=== PATIENT | male | born 2000 | race African-American/Black ===

== ENCOUNTER 2023-01-26 21:50 | Emergency (ER) | payer BC ==
[2023-01-26] MEDS ORDERED: cefTRIAXone (ROCEPHIN) 500 MG VIAL ONE (23:06)
[2023-01-26] MEDS ORDERED: Doxycycline 100 MG CAP ONE (23:06)
[2023-01-26 23:07] LABS: Bacteria/HPF None Seen HPF (None Seen); Bilirubin Negative (Negative); Blood, Urine Negative (Negative); CAUTI Indications for Culture Pelvic or flank pain; Clarity Clear (Clear); Glucose, Urine (Dipstick) Normal (Negative); Ketone, Urine Negative (Negative); Leukocyte Negative Leu/uL (Negative); Nitrite Negative (Negative); Protein, Urine (Dipstick) 10 mg/dL (Neg-Trace); RBC/HPF 0-3 HPF (0-3); Specific Gravity, Urine 1.019 (1.002-1.036); Squamous Epithelial None Seen HPF (0-3); Urobilinogen Normal mg/dL (Less than 2); WBC/HPF 0-3 HPF (0-3); pH, Urine 7.5 (5.0-9.0)
[2023-01-26] MEDS ORDERED: Lidocaine 1% PF 5 ML VIAL ONE (23:07)
[2023-01-26 23:09] LABS: Urine Culture Reflex No No
[2023-01-27 01:29] LABS: Chlam.trachomatis by PCR,Urine Not Detected (NotDetected); GC N.gonorrhoeae PCR,UrineVOID Not Detected (NotDetected)
== END 2023-01-26 23:20 | disposition home or self-care (01) ==
LOC: ERS 21:50
DX: I86.1 Scrotal varices (principal); N45.1 Epididymitis; N43.3 Hydrocele, unspecified
CPT/HCPCS: 76870; 81001; 87491; 87591; 93976; 96372; J0696

== ENCOUNTER 2023-01-27 07:07 | Day surgery (SDC) | payer BC ==
[2023-01-27] MEDS ORDERED: Morphine 4 MG/ML VIAL ONE ×2 (07:32→09:22)
[2023-01-27] MEDS ORDERED: Ondansetron PF 4 MG/2 ML Vial ONE ×2 (07:32→10:04)
[2023-01-27 07:55] LABS: #Monocytes 0.4 thou/uL (0.11-0.59); #Neutrophils 7.3 thou/uL (1.40-6.50); %Basophils 0.2 % (0.0-1.0); %Eosinophils 0.3 % (0.0-10.0); %Lymphocytes 10.8 % (28.0-48.0); %Monocytes 4.5 % (0.0-4.0); Hemoglobin 14.5 g/dL (14.0-18.0); Mean Corpuscular Hemoglobin 27.7 pg (25.0-35.0); Mean Platelet Volume 10.5 fL (7.4-10.4); Platelet Count 276 10x3/uL (130-400); RBC Distribution Width 13.3 % (11.5-14.5); Red Blood Cell (RBC) Count 5.24 mill/uL (4.00-5.20); White Blood Cell (WBC) Count 8.6 10x3/uL (4.8-10.8)
[2023-01-27 08:18] LABS: ALT (SGPT) 16 U/L (8-55); AST (SGOT) 24 U/L (5-34); Albumin 4.6 g/dL (3.5-5.0); Alkaline Phosphatase 82 U/L (50-130); Anion Gap 13 mmol/L (10-20); BUN (Urea Nitrogen) 9 mg/dL (8.9-20.6); Bilirubin, Total 0.4 mg/dL (0.2-1.2); Calc. Creatinine Clearance 0 mL/min (70-130); Calcium 9.4 mg/dL (7.8-10.44); Carbon Dioxide 26 mmol/L (22-29); Chloride 102 mmol/L (98-107); Estimated GFR 104; Globulin 2.3 g/dL (2.4-3.5); Glucose 112 mg/dL (70-105); Potassium 3.9 mmol/L (3.5-5.1); Protein, Total 6.9 g/dL (6.0-8.3); Sodium 137 mmol/L (136-145)
[2023-01-27] MEDS ORDERED: fentaNYL 50 mcg/mL 1 mL Vial ONE ×3 (09:46→10:53)
[2023-01-27] MEDS ORDERED: Meperidine HCl/PF 25 MG/ML VIAL ONE (09:46)
[2023-01-27] MEDS ORDERED: Famotidine/PF 20 mg/2ml Vial ONE (09:46)
[2023-01-27 09:47] LABS: Bacteria/HPF None Seen HPF (None Seen); Bilirubin Negative (Negative); Blood, Urine Negative (Negative); CAUTI Indications for Culture Dysuria,urgency,freq; Clarity Clear (Clear); Glucose, Urine (Dipstick) Normal (Negative); Ketone, Urine Negative (Negative); Leukocyte Negative Leu/uL (Negative); Nitrite Negative (Negative); Protein, Urine (Dipstick) Negative (Neg-Trace); RBC/HPF 0-3 HPF (0-3); Specific Gravity, Urine 1.021 (1.002-1.036); Squamous Epithelial None Seen HPF (0-3); Urobilinogen Normal mg/dL (Less than 2); WBC/HPF 0-3 HPF (0-3)
[2023-01-27 09:53] LABS: Urine Culture Reflex No No
[2023-01-27] MEDS ORDERED: CEFAZOLIN 2 GM VIAL ONE (09:55)
[2023-01-27] MEDS ORDERED: Sodium Chloride 0.9% 100 ML ONE (09:55)
[2023-01-27] MEDS ORDERED: Metoclopramide HCl 10 MG/2 ML VIAL ONE (10:04)
[2023-01-27] MEDS ORDERED: Ketorolac Tromethamine 30 MG/ML VIAL ONE (10:04)
[2023-01-27] MEDS ORDERED: Dexamethasone 20 MG/5 ML VIAL ONE (10:04)
[2023-01-27] MEDS ORDERED: Lidocaine 1% PF 5 ML VIAL ONE (10:04)
[2023-01-27] MEDS ORDERED: PROPOFOL 200 MG/20 ML VIAL ONE (10:04)
[2023-01-27] MEDS ORDERED: Midazolam HCl 2 mg/2 ml Vial ONE (10:05)
[2023-01-27] MEDS ORDERED: Bupivacaine 0.25% HCL 30 ML VIAL ONE (10:20)
[2023-01-27] MEDS ORDERED: Meperidine HCl/PF 25 MG/ML VIAL SLOW IVP PRN (10:34)
[2023-01-27] MEDS ORDERED: Promethazine HCl 25 MG/ML VIAL IM PRN (10:34)
[2023-01-27] MEDS ORDERED: Ondansetron HCl/PF 4 MG/2 ML Vial IVP PRN (10:34)
[2023-01-27] MEDS ORDERED: Bacitracin Zinc Ointment 30 gm TUBE ONE (11:03)
[2023-01-27] MEDS ORDERED: HYDROcodone/Acetaminophen 5/325 mg Tablet ONE (12:59)
== END 2023-01-27 13:50 | disposition home or self-care (01) ==
LOC: ERS 07:07 → SDC 09:48
PROVIDERS: ATTEND Urology
PROC: 0VQC0ZZ Repair Bilateral Testes, Open Approach (ICD-10-PCS; principal; 2023-01-27)
DX: N44.00 Torsion of testis, unspecified (principal); N43.3 Hydrocele, unspecified
CPT/HCPCS: 36415; 76870; 80053; 81001; 85025; 93976; 96374; 96375; 96376; J1100; J1885; J2175; J2250; J2270; J2405; J2704; J2765; J3010; J3490; S0020; S0028